=== PATIENT | male | born 1985 | race Two or more races ===

== ENCOUNTER 2024-05-30 17:40 | Emergency (ER) | payer MEDICAID, OTHER ==
[~2024-05-30] VITALS: Ht 175.3 cm; Wt 121.0 kg
[2024-05-30 18:17] VITALS: BP 128/76; PULSE 18; RESP 18; TEMP 97; O2SAT 96
[2024-05-30] MEDS: HYDROcodone-ACET 5/325MG TAB PO ONE (18:43)
[2024-05-30] MEDS: TETANUS-DIPTH-ACEL PERTUSSIS 0.5ML SYR Tdap IM ONE (18:45)
[2024-05-30] MEDS ORDERED: AUG875T PO (19:43)
== END 2024-05-30 20:32 | disposition home or self-care (01) ==
LOC: ER 17:40
DX: S81.012A Laceration without foreign body, left knee, initial encounter (principal); X58.XXXA Exposure to other specified factors, initial encounter; Y93.89 Activity, other specified; Y92.89 Other specified places as the place of occurrence of the external cause; Y99.8 Other external cause status
CPT/HCPCS: 12001; 73564; 90471; 90715